=== PATIENT | male | born 1980 | race African-American/Black ===

== ENCOUNTER 2019-06-23 17:25 | Emergency (ER) | payer SELFPAY ==
[~2019-06-23] VITALS: Ht 175.3 cm; Wt 63.5 kg
[2019-06-23 17:27] VITALS: BP 136/67
[2019-06-23] MEDS ORDERED: inhaler (17:29)
[2019-06-23] MEDS ORDERED: Ketorolac 30mg Inj IM ONE (18:00)
[2019-06-23] MEDS ORDERED: Methocarbamol 750mg tab ORAL ONE (18:00)
--- NOTE | 2019-06-23 18:28 | NUR ---
ED Nurse Note: Brought in by ambulance from work; c/o low back pain, tightness after lifting 'heavy, paint bucket'. Reports no loss of bladder or bowel control. Reports no numbness or tingling in BLE. Patient has chronic back pain and takes Motrin as needed. Guarding noted. Provided comfort measures. Bed in lowest position.
--- NOTE | 2019-06-23 18:55 | Emergency Room Report ---
History of Present Illness General Chief Complaint: Back Pain-No Injury Source: Patient Present Illness HPI 38-year-old male with no significant past medical history brought in by paramedics after feeling a sharp pain in his lower back today while lifting heavy objects at work. Patient reports that he has been dealing with this pain for quite a while and today he started feeling a sharp pain that started after lifting heavy objects denies any pain radiation, denies tingling and numbness, denies saddle paresthesia, urinary and bowel incontinence. Patient has not yet taken medication for pain today. Patient is rating her pain 10 out of 10 and denies all other injuries, and fall on his back. Patient denies chest pain, shortness of breath, palpitation, abdominal pain, nausea vomiting, no other associated symptoms. Allergies: Coded Allergies: No Known Allergies (Unverified , 06/23/19) Patient History Past Medical History: see triage record Past Surgical History: unable to obtain Pertinent Family History: none Immunizations: UTD Reviewed Nursing Documentation: PMH: Agreed; PSxH: Agreed Nursing Documentation-PMH Past Medical History: No History, Except For Hx Asthma: Yes Review of Systems All Other Systems: negative except mentioned in HPI Physical Exam Vital Signs Date Time Temp Pulse Resp B/P (MAP) Pulse Ox O2 Delivery O2 Flow Rate FiO2 06/23/19 17:27 98.4 106 16 136/67 98 Room Air Sp02 EP Interpretation: reviewed, normal General Appearance: no apparent distress, alert, GCS 15, non-toxic Head: normocephalic, atraumatic Eyes: bilateral eye normal inspection, bilateral eye PERRL ENT: hearing grossly normal, normal pharynx, no angioedema, normal voice Neck: full range of motion, supple/symm/no masses Respiratory: chest non-tender, lungs clear, normal breath sounds, no rhonchi, no respiratory distress, no wheezing Cardiovascular #1: regular rate, rhythm, no edema, no murmur Cardiovascular #2: 2+ dorsalis pedis (R), 2+ dorsalis pedis (L) Gastrointestinal: normal bowel sounds, non tender, soft, non-distended, no guarding, no rebound Musculoskeletal: back normal, digits/nails normal, gait/station normal, normal range of motion, non-tender, no calf tenderness, pelvis stable Neurologic: alert, oriented x3, responsive, motor strength/tone normal, sensory intact, speech normal Psychiatric: judgement/insight normal, memory normal, mood/affect normal, no suicidal/homicidal ideation Skin: no rash Lymphatic: no adenopathy Medical Decision Making PA Attestation All my diagnosis and treatment plans were reviewed ad discussed with my supervising physician Dr. Torres Diagnostic Impression: Primary Impression: Lumbar strain ER Course 38-year-old male with no significant past medical history brought in by paramedics after feeling a sharp pain in his lower back today while lifting heavy objects at work. Patient reports that he has been dealing with this pain for quite a while and today he started feeling a sharp pain that started after lifting heavy objects denies any pain radiation, denies tingling and numbness, denies saddle paresthesia, urinary and bowel incontinence. Patient has not yet taken medication for pain today. Patient is rating her pain 10 out of 10 and denies all other injuries, and fall on his back. Patient denies chest pain, shortness of breath, palpitation, abdominal pain, nausea vomiting, no other associated symptoms. Ddx considered but are not limited to: Lumbar spine sprain, strain, fracture, contusion, neuropathy Vital signs: are WNL, pt. is afebrile H&PE are most consistent with: Lumbar strain ORDERS: Lumbar spine x-ray, lidocaine patch, Robaxin, ibuprofen ER intervention: Lidocaine patch, Toradol, Robaxin DISCHARGE: At this time pt. is stable for d/c to home. Will provide printed patient care instructions, and any necessary prescriptions. Care plan and follow up instructions have been discussed with the patient prior to discharge. Take medication as directed follow-up with your primary care provider for referral to physical therapy as needed if worsening symptoms return to the emergency room Other X-Ray Diagnostic Results Other X-Ray Diagnostic Results : X-Ray ordered: Lumbar spine # of Views/Limited Vs Complete: 3 View Indication: Pain EP Interpretation: Yes PA Xray: Interpretation reviewed, by supervising MD, and agrees with findings. Interpretation: no dislocation, no soft tissue swelling, no fractures Impression: No acute disease Electronically Signed by: Javi Lee PA-C Last Vital Signs Date Time Temp Pulse Resp B/P (MAP) Pulse Ox O2 Delivery O2 Flow Rate FiO2 06/23/19 17:27 98.4 106 16 136/67 (90) 98 Room Air Disposition: HOME, SELF-CARE Condition: Stable Scripts Lidocaine Patch* (Lidoderm Patch*) 1 Each Adh..patch 1 PATCH TOPIC DAILY, #7 PATCH 0 Refills Patch(es) may remain in place for up to 12 hours in any 24-hour period. Prov: Javi Galdamez 06/23/19 Ibuprofen (Ibu) 800 Mg Tablet 800 MG PO TID, #30 TAB Prov: Javi Galdamez 06/23/19 Methocarbamol* (ROBAXIN-500*) 500 Mg Tablet 500 MG ORAL TID PRN for For Pain, #15 TAB 0 Refills Prov: Javi Galdamez 06/23/19 Referrals: NOT CHOSEN IPA/MD,REFERRING (PCP) Patient Instructions: Lumbosacral Strain Additional Instructions: Take medication as directed, follow-up with your primary care provider, avoid strenuous physical activity, if worsening symptoms return to the emergency room Javi Galdamez Jun 23, 2019 18:55
[2019-06-23] MEDS ORDERED: IBU800 MG PO (18:56)
[2019-06-23] MEDS ORDERED: LIDODERM700 M1 TOPIC (18:56)
[2019-06-23] MEDS ORDERED: ROBAXIN-500MG ORAL (18:56)
[2019-06-23 19:21] VITALS: BP 115/69
--- NOTE | 2019-06-23 19:21 | NUR ---
ED Nurse Note: Patient is being discharged from medical care. Patient able to move from bed to wheelchair. Assisted patient in wheelchair to car by EMT. D/C instruction and prescription given to patient. Patient verbalized understanding of it. ID band removed. Patient left with all his belongings.
--- NOTE | 2019-06-24 15:52 | Diagnostic Imaging Report ---
Indication: Pain, trauma Technique: 3 views of the lumbar spine Comparison: None Findings: Vertebral body heights are preserved. Disc spaces are preserved. Bony alignment is normal. Pedicles are intact. Sacral arches are preserved. Sacral iliac joint spaces are preserved Impression: Negative
== END 2019-06-23 19:27 | disposition home or self-care (01) ==
LOC: EDBD 17:25 → EMR 17:45
DX: S39.012A Strain of muscle, fascia and tendon of lower back, initial encounter (principal); X50.9XXA Other and unspecified overexertion or strenuous movements or postures, initial encounter; Y92.9 Unspecified place or not applicable; Y99.0 Civilian activity done for income or pay
CPT/HCPCS: 72020; 96372; 99283; J1885